=== PATIENT | male | born 1955 | race Two or more races ===

== ENCOUNTER 2025-03-24 22:09 | Emergency (ER) | payer MEDICARE, MEDICAID ==
[~2025-03-24] VITALS: Ht 165.1 cm; Wt 72.9 kg
[2025-03-24 23:25] VITALS: BP 178/92; PULSE 75; RESP 16; TEMP 97.8; O2SAT 100
[2025-03-24] MEDS: ONDANSETRON ODT 4 MG TAB PO ONE (23:39)
[2025-03-24] MEDS: HYDROcodone-ACET 5/325MG TAB PO ONE (23:39)
--- NOTE | 2025-03-24 23:40 | ED.PDOC ---
Musculoskeletal HPI Comments 69-year-old male presents to ER with complaints of right wrist pain x two days. Patient reports he started experiencing unprovoked pain/swelling to right wrist two days ago. He rates his current pain a 10/10 to right wrist with radiation towards right forearm. States he did take Tylenol for his pain with some relief. Patient presents to ER ambulatory, in no distress. Denies fever, body aches, chills, trauma/falls, numbness/tingling or any further symptoms/complaints Chief Complaint: Upper Extremity Time Seen by MD: 22:20 Primary Care Provider: UNKNOWN Reviewed Notes: Nurses Notes, Medications, Allergies Allergies: Coded Allergies: No Known Drug Allergy (Verified Allergy, Unknown, 03/24/25) Home Meds Active Scripts Acetaminophen (Acetaminophen) 500 Mg Tab, 500 MG PO Q4HPRN, #30 TAB 0 Refills Prov:DALY PATTEN 03/25/25 Information Source: Patient Mode of Arrival: Ambulatory Past Medical History PAST MEDICAL HISTORY: ESRD (DIALYSIS M,W,F ), HTN Surgical History (Other): Right upper extremity fistula Family History Family History: Unknown Social History Smoker: Non-Smoker Alcohol: Denies ETOH Use Drugs: Denies Drug Use Lives In: Home Constitutional: denies: chills, diaphoresis, fatigue, fever, malaise, sweats, weakness, others EENTM: denies: blurred vision, double vision, ear bleeding, ear discharge, ear drainage, ear pain, ear ringing, eye pain, eye redness, hearing loss, mouth pain, mouth swelling, nasal discharge, nose bleeding, nose congestion, nose pain, photophobia, tearing, throat pain, throat swelling, voice changes, others Respiratory: denies: cough, hemoptysis, orthopnea, SOB at rest, shortness of breath, SOB with excertion, stridor, wheezing, others Cardiovascular: denies: chest pain, dizzy spells, diaphoresis, Dyspnea on exertion, edema, irregular heart beat, left arm pain, lightheadedness, palpitations, PND, syncope, others Gastrointestinal: denies: abdomen distended, abdominal pain, blood streaked bowels, constipated, diarrhea, dysphagia, difficulty swallowing, hematemesis, melena, nausea, poor appetite, poor fluid intake, rectal bleeding, rectal pain, vomiting, others Genitourinary: denies: burning, dysuria, flank pain, frequency, hematuria, incontinence, penile discharge, penile sore, pain, testicle pain, testicle swelling, urgency, others Neurological: denies: dizziness, fainting, headache, left sided numbness, left sided weakness, numbness, paresthesia, pre-existing deficit, right sided numbness, right sided weakness, seizure, speech problems, tingling, tremors, weakness, others Musculoskeletal: reports: others ( STATED IN HPI) Integumetry: reports: others ( STATED IN HPI) Allergic/Immunocompromised: denies: Difficulty Healing, Frequent Infections, Hives, Itching, others Hematologic/Lymphatic: denies: anemia, blood clots, easy bleeding, easy bruising, swollen glands, others Endocrine: denies: excessive hunger, excessive sweating, excessive thirst, excessive urination, flushing, intolerance to cold, intolerance to heat, unexplained weight gain, unexplained weight loss, others Psychiatric: denies: anxiety, bipolar disorder, depression, hopeless, panic disorder, schizophrenia, sleepless, suicidal, others Physical Exam General Appearance: No Apparent Distress HEENT: PERRL/EOMI Neck: Full Range of Motion, Non-Tender, Normal Respiratory: Chest Non-Tender, Lungs Clear, No Accessory Muscle Use, No Respiratory Distress, Normal Breath Sounds Cardiovascular: No Murmur, No Gallop, Regular Rate/Rhythm Breast Exam: Deferred Gastrointestinal: NOT DONE Genitalia: Deferred Pelvic: Deferred Rectal: Deferred Extremities: Normal capillary refill, Normal range of motion Musculoskeletal : Extremity Location: Wrist (TTP/mild swelling noted to right wrist. No erythema/further skin changes to right wrist noted. No TTP to right forearm noted. Pulses intact), Other (Fistula to right upper extremity noted) Neurologic: Alert, No Motor Deficits, Normal Affect, Normal Mood, No Sensory Deficits Cerebellar Function: Normal Reflexes: Normal Skin: Dry, Normal Color, Warm Peripheral Pulses: 2+ carotid (R), 2+ carotid (L), 2+ Radial (R), 2+ Radial (L), 2+ Brachial (R), 2+ Brachial (L) Lymphatic: No Adenopathy Was a procedure done? Was a procedure done?: No Sedation Sedation?: No Differential Diagnosis EXT Differential Diagnosis: Cellulitis, Deep Vein Thrombosis, Fracture, Neur ovascular injury X-Ray, Labs, Meds, VS Vital Signs Date Time Temp Pulse Resp B/P (MAP) Pulse Ox O2 Delivery O2 Flow Rate FiO2 03/24/25 23:26 Room Air* 0 21 03/24/25 23:25 97.8 75 16 178/92 (120) 100 97.8 03/24/25 22:11 97.8 75 16 178/92 100 97.8 Current Medications Medications (Trade) Dose Ordered Sig/Joe Route Start Time Stop Time Status Last Admin Acetaminophen/ Hydrocodone Bitart ([place] 5/325MG Tab) 1 tab ONCE ONCE PO 03/24/25 23:30 03/24/25 23:31 DC 03/24/25 23:39 Ondansetron HCl (Zofran Po) 4 mg ONCE ONCE PO 03/24/25 23:30 03/24/25 23:31 DC 03/24/25 23:39 PATIENT: ALEX MONTE ACCT: [id number] UNIT: [id number] : 1955 LOC: ER ROOM / BED: / AGE / SEX: 69 / M ADM STATUS: REG ER SERVICE 24 ORDERING PHYSICIAN: DALY PATTEN PROCEDURE(s): RWRI - R WRIST 3+ VIEW XRAY REASON: right wrist pain ORDER NUMBER(s): [id number], ACCESSION NUMBER(s): [id number] EXAM: XY R WRIST 3+ VIEW XRAY HISTORY: right wrist pain COMPARISON: None TECHNIQUE: 3 views of the right wrist were performed. FINDINGS/IMPRESSION: No acute displaced fracture. A well corticated ossific density is seen along the ulnar styloid, which may reflect a chronic fracture. There is mild soft tissue swelling about the wrist. Atherosclerotic vascular calcifications are noted. If clinical symptoms persist, a repeat radiograph may be obtained in 10-14 days to better visualize a fracture line. ATED BY: TALYA GARCIA MD DICTATED DATE/TIME: 03/25/2555 SIGNED BY: TALYA GARCIA MD SIGNED DATE/TIME: 03/25/2555 CC: PATIENT: ALEX MONTE ACCT: [id number] UNIT: [id number] : 1955 LOC: ER ROOM / BED: / AGE / SEX: 69 / M ADM STATUS: [facility] ER SERVICE 21 ORDERING PHYSICIAN: DALY PATTEN PROCEDURE(s): RUDVT - Rt Upper DVT REASON: RIGHT ARM PAIN ORDER NUMBER(s): [id number], ACCESSION NUMBER(s): [id number] RIGHT Upper Extremity Venous Duplex Clinical History: RIGHT ARM PAIN Comparison: None Technique: Duplex Doppler evaluation of the venous system of the RIGHT lower neck and upper extremity including color Doppler and spectral/pulsed waveform analysis was performed. Findings: Flow is seen throughout the AV fistula. Inflow artery: 142 cm/sec PSV, 44 cm/sec EDV Inflow artery distally: 124 cm/sec, 40 cm/sec Anastomosis: 126 cm/sec, 54 cm/sec Outflow proximal: 73 cm/sec, 21 cm/sec Outflow mid: 34 cm/sec, 14 cm/sec Outflow distal: 341 cm/sec, 174 cm/sec Stent within the distal fistula. Impression: No venous thrombus identified in the RIGHT upper extremity vessels evaluated above. Stent within the distal fistula. ATED BY: KARAN PRIETO MD DICTATED DATE/TIME: 03/25/25403 SIGNED BY: KARAN PRIETO MD SIGNED DATE/TIME: 03/25/25403 CC: Right wrist x-ray reviewed Right upper extremity DVT ultrasound reviewed - negative for DVT Advised on elevation and alternate ice on/off as needed for pain/swelling [place] 5/325 mg p.o. ordered Zofran 4 mg p.o. ordered Right wrist splint applied Patient had improvement in symptoms, neurovascularly intact and in no distress prior to discharge Advised on re-xray of right wrist in 1 week if symptoms do not improve Advised to follow up with PCP in 1-2 days Patient verbalized understanding and agreeable with current plan of care Advised to return to ER immediately if symptoms worsen Images Reviewed?: Images reviewed and evaluated by me Time of 1ST Reevaluation: 23:24 Reevaluation 1ST: N/A Patient Education/Counseling: Diagnosis, Treatment, Prognosis, Need For Follow Up Family Education/Counseling: Diagnosis, Treatment, Prognosis, Need For Follow Up Departure 1 Departure Time of Disposition: 23:38 Impression: Primary Impression: Right wrist sprain Qualified Codes: S63.501A - Unspecified sprain of right wrist, initial encounter Disposition: HOME / SELF CARE / HOMELESS Condition: Stable e-Prescriptions Acetaminophen (Acetaminophen) 500 Mg Tab 500 MG PO Q4HPRN, #30 TAB 0 Refills Prov: DALY PATTEN 03/25/25 Discharged With: Other (Daughter) Critical Care Note Critical Care Time?: No Stability Stability form required: No Heart Score Heart Score: Heart Score Response (Comments) Value History N/A 0 EKG N/A 0 Age N/A 0 Risk Factors N/A 0 Troponin N/A 0 Total 0 DALY PATTEN Mar 24, 2025 23:40
--- NOTE | 2025-03-25 01:00 | DVH ---
EXAM: XY R WRIST 3+ VIEW XRAY HISTORY: right wrist pain COMPARISON: None TECHNIQUE: 3 views of the right wrist were performed. FINDINGS/IMPRESSION: No acute displaced fracture. A well corticated ossific density is seen along the ulnar styloid, which may reflect a chronic fracture. There is mild soft tissue swelling about the wrist. Atherosclerotic vascular calcifications are noted. If clinical symptoms persist, a repeat radiograph may be obtained in 10-14 days to better visualize a fracture line.
[2025-03-25] MEDS ORDERED: ACET500T58 PO (02:16)
--- NOTE | 2025-03-25 04:07 | DVH ---
RIGHT Upper Extremity Venous Duplex Clinical History: RIGHT ARM PAIN Comparison: None Technique: Duplex Doppler evaluation of the venous system of the RIGHT lower neck and upper extremity including color Doppler and spectral/pulsed waveform analysis was performed. Findings: Flow is seen throughout the AV fistula. Inflow artery: 142 cm/sec PSV, 44 cm/sec EDV Inflow artery distally: 124 cm/sec, 40 cm/sec Anastomosis: 126 cm/sec, 54 cm/sec Outflow proximal: 73 cm/sec, 21 cm/sec Outflow mid: 34 cm/sec, 14 cm/sec Outflow distal: 341 cm/sec, 174 cm/sec Stent within the distal fistula. Impression: No venous thrombus identified in the RIGHT upper extremity vessels evaluated above. Stent within the distal fistula.
== END 2025-03-25 02:28 | disposition home or self-care (01) ==
LOC: ER 22:09
DX: S63.501A Unspecified sprain of right wrist, initial encounter (principal); I12.0 Hypertensive chronic kidney disease with stage 5 chronic kidney disease or end stage renal disease; N18.6 End stage renal disease; Z99.2 Dependence on renal dialysis; X58.XXXA Exposure to other specified factors, initial encounter; Y93.89 Activity, other specified; Y92.89 Other specified places as the place of occurrence of the external cause; Y99.8 Other external cause status
CPT/HCPCS: 29125; 73110; 93971; 99284; Q0162